=== PATIENT | female | born 1995 | race Caucasian/White ===

== ENCOUNTER 2019-01-22 16:04 | Emergency (ER) | payer OTHER, SELFPAY ==
[2019-01-22 16:20] VITALS: BP 127/92; PULSE 70; RESP 18; TEMP 36.6; O2SAT 100; BMI 19.0
--- NOTE | 2019-01-22 16:24 | HMH.EDUTC ---
[facility] [place]ression: Allergic eye reaction Disposition: Home, Self-Care Condition on Discharge: Good Prescriptions: Prednisolone Acetate/Pf [Prednisolone Acet 1% Eye Drop] 2 drops OP QID 5 Days #1 drops.susp Referrals: Aaron Stallings [Primary Care Provider] - Time of Disposition: 16:34 Medical Decision Making - Camilo Inquiry Pt receiving controlled substance: No Vital Signs: 01/22/19 16:20 Temperature 97.9 F Temperature Source Oral Pulse Rate [Right Radial] 70 Respiratory Rate 18 Blood Pressure [Right Arm] 127/92 H Blood Pressure Mean [Right Arm] 103 Blood Pressure Source [Right Arm] Automatic Cuff Blood Pressure Position [Right Arm] Sitting 02 Sat by Pulse Oximetry 100 Oxygen Delivery Method Room Air [facility] [place] - General Stated complaint: eyes Red Time Seen by Provider: 01/22/19 16:24 Mode of Arrival: Ambulatory Source of Information: Patient Limitations: No Limitations Description of Symptoms (Recalled from Triage Doc. by RN): C/O EYE IRRITATION HEENT Symptoms (Recalled from RN notes): Yes (EYE IRRITATION) Resp Symptoms (Recalled from RN notes): No Skin Symptoms (Recalled from RN notes): No MS Symptoms (Recalled from RN notes): No Functional Status (Recalled from RN notes): N/A - History of Present Illness Provider Complaint: Red,swollen eyes for 2 days after getting eyelash extensions. Eyes feel sore but have not been matted or draining. Onset (ago): day(s) (2) Location: eyes Relieving factors: none Exacerbating factors: none Associated symptoms: denies other symptoms Treatments prior to arrival: none - Related Data Previous Rx's Medication Instructions Recorded Prednisolone Acetate/Pf 2 drops OP QID 5 Days #1 drops.susp 01/22/19 [Prednisolone Acet 1% Eye Drop] - Worker's Comp Is this a Worker's Comp case?: No [facility] History - Hepatitis A Screen Drug use history?: No High risk sexual behaviors?: No History of sexually transmitted infection?: No Currently employed?: No Childcare worker?: No Do you have indoor plumbing?: Yes Do you have electricity?: Yes Attestation statement:: This patient has been screened for Hepatitis A risk factors. I have reviewed the patient's past medical history: Yes - Social History Smoking Status: Never smoker Alcohol Intake: never Occupational Status: employed - Psychiatric History Expresses thoughts of harming self/others: None Suicide Plan Description: No Plan ROS Obtained: Yes All systems reviewed & no additional complaints - Eyes Eyes: Reports eye discharge, Reports eye pain Physical Exam - General General appearance: alert, in no apparent distress - Head Head exam: atraumatic, normocephalic, normal inspection - Eye Eye exam: Present: normal appearance, PERRL, EOMI, scleral icterus - ENT ENT exam: Present: normal exam, normal oropharynx, mucous membranes moist, TM's normal bilaterally, normal external ear exam - Neck Neck exam: Present: normal inspection, full ROM, trachea midline. Absent: meningismus, lymphadenopathy - Chest Chest inspection: Present: normal inspection, symmetric chest wall rise. Absent: tenderness - Respiratory Respiratory exam: Present: normal lung sounds bilaterally. Absent: respiratory distress - Cardiovascular Cardiovascular exam: Present: regular rate, normal rhythm. Absent: JVD - Abdominal Exam Abdominal exam: Present: soft, normal bowel sounds. Absent: distention, tenderness, guarding - Extremities Exam Extremities exam: Present: normal inspection, full ROM, normal capillary refill. Absent: calf tenderness - Back Exam Back exam: Present: normal inspection. Absent: tenderness - Neurological Exam Neurological exam: Present: alert, oriented X3 - Psychiatric Psychiatric exam: Present: normal affect, normal mood - Skin Skin exam: Present: warm, dry, intact, normal color - Lymphatic Lymphatic Findings: no adenopathy
--- NOTE | 2019-01-22 16:31 | ED_ITS ---
[facility] [place] Impression: Allergic eye reaction Disposition: Home, Self-Care Condition on Discharge: Good Prescriptions: Prednisolone Acetate/Pf [Prednisolone Acet 1% Eye Drop] 2 drops OP QID 5 Days #1 drops.susp Referrals: Aaron Stallings [Primary Care Provider] - Time of Disposition: 16:34 Medical Decision Making - Camilo Inquiry Pt receiving controlled substance: No Vital Signs: 01/22/19 16:20 Temperature 97.9 F Temperature Source Oral Pulse Rate [Right Radial] 70 Respiratory Rate 18 Blood Pressure [Right Arm] 127/92 H Blood Pressure Mean [Right Arm] 103 Blood Pressure Source [Right Arm] Automatic Cuff Blood Pressure Position [Right Arm] Sitting 02 Sat by Pulse Oximetry 100 Oxygen Delivery Method Room Air [facility] [place] - General Stated complaint: eyes Red Time Seen by Provider: 01/22/19 16:24 Mode of Arrival: Ambulatory Source of Information: Patient Limitations: No Limitations Description of Symptoms (Recalled from Triage Doc. by RN): C/O EYE IRRITATION HEENT Symptoms (Recalled from RN notes): Yes (EYE IRRITATION) Resp Symptoms (Recalled from RN notes): No Skin Symptoms (Recalled from RN notes): No MS Symptoms (Recalled from RN notes): No Functional Status (Recalled from RN notes): N/A - History of Present Illness Provider Complaint: Red,swollen eyes for 2 days after getting eyelash extensions. Eyes feel sore but have not been matted or draining. Onset (ago): day(s) (2) Location: eyes Relieving factors: none Exacerbating factors: none Associated symptoms: denies other symptoms Treatments prior to arrival: none - Related Data Previous Rx's Medication Instructions Recorded Prednisolone Acetate/Pf 2 drops OP QID 5 Days #1 drops.susp 01/22/19 [Prednisolone Acet 1% Eye Drop] - Worker's Comp Is this a Worker's Comp case?: No [facility] History - Hepatitis A Screen Drug use history?: No High risk sexual behaviors?: No History of sexually transmitted infection?: No Currently employed?: No Childcare worker?: No Do you have indoor plumbing?: Yes Do you have electricity?: Yes Attestation statement:: This patient has been screened for Hepatitis A risk factors. I have reviewed the patient's past medical history: Yes - Social History Smoking Status: Never smoker Alcohol Intake: never Occupational Status: employed - Psychiatric History Expresses thoughts of harming self/others: None Suicide Plan Description: No Plan ROS Obtained: Yes All systems reviewed & no additional complaints - Eyes Eyes: Reports eye discharge, Reports eye pain Physical Exam - General General appearance: alert, in no apparent distress - Head Head exam: atraumatic, normocephalic, normal inspection - Eye Eye exam: Present: normal appearance, PERRL, EOMI, scleral icterus - ENT ENT exam: Present: normal exam, normal oropharynx, mucous membranes moist, TM's normal bilaterally, normal external ear exam - Neck Neck exam: Present: normal inspection, full ROM, trachea midline. Absent: meningismus, lymphadenopathy - Chest Chest inspection: Present: normal inspection, symmetric chest wall rise. Absent: tenderness - Respiratory Respiratory exam: Present: normal lung sounds bilaterally. Absent: respiratory distress
[2019-01-22 16:39] VITALS: BP 127/92; PULSE 70; RESP 18; TEMP 36.6; O2SAT 100
== END 2019-01-22 16:42 | disposition home or self-care (01) ==
PROVIDERS: Emergency Provider Physician Assistant; PCP Internal Medicine
DX: T78.49XA Other allergy, initial encounter (principal); H57.9 Unspecified disorder of eye and adnexa
CPT/HCPCS: 99201

== ENCOUNTER 2023-04-08 17:00 | Emergency (ER) | payer OTHER, SELFPAY ==
[2023-04-08 17:01] VITALS: BP 127/72; PULSE 76; RESP 18; TEMP 36.6; O2SAT 98; BMI 20.9
--- NOTE | 2023-04-08 17:19 | EXP.UTC ---
Discharge Plan Disposition Patient Disposition: Home, Self-Care Condition: Good Prescriptions Prescriptions: New cephalexin 500 mg capsule 500 mg PO BID 5 Days Qty: 10 0RF Referrals Follow up/Referrals: Aaron Stallings MD [Primary Care Provider] - See instructions Activity Restrictions/Add. Instructions Additional Instructions/Restrictions: *Increase fluids. Water not Soda or Tea *Start antibiotic immediately and be sure to take as ordered for the FULL length of time although you should start to see improvement over the next 48 hours *Be SURE to follow up anytime for new or worsening symptoms with your family doctor. AND in 48 hours for urine culture results with your family doctor, if you do not have a doctor then you may call back to the [facility] for urine culture results and further treatment. We do recommend that you choose and establish care with a Primary Care Physician. ?AND follow up with them ?in 10-14 days to repeat UA to ensure infection is resolved and blood no longer present *Be sure to let your PCP know that we sent urine cultures from the [facility] so they can follow up to ensure that you area the on the correct antibiotic Call your doctor office and make appointment for 48 hours (2 days from today) ?to follow up and get the results of your urine culture and further treatment Clinical Impressions Clinical Impression: UTI symptoms Instructions Patient Instructions: DI for Urinary Tract Infection (UTI), Cephalexin Discharge ED Provider: Felipa Frederick [facility] [place] HPI General Stated complaint: low back pain Mode of Arrival: Ambulatory Source of Information: Patient Limitations: No Limitations Time Seen by Provider: 04/08/23 17:19 Description of Symptoms (Recalled from Triage Doc. by RN): Patient reports lower back pain on the left side for 2 days. Possible UTI. HEENT Symptoms (Recalled from RN notes): No Resp Symptoms (Recalled from RN notes): No Skin Symptoms (Recalled from RN notes): No MS Symptoms (Recalled from RN notes): No Functional Status (Recalled from RN notes): wnl History of Present Illness Provider Complaint: Patient states that she has been having achy like feeling on her left lower back since yesterday States that it is an achy like feeling that comes and goes and feeling of urgency and frequency States that she was worried when it was still hurting today that she may have a UTI or something so she came in to get checked Related Data Previous Rx's Medication Instructions Recorded cephalexin 500 mg capsule 500 mg PO BID 5 days #10 caps 04/08/23 Allergies Allergy/AdvReac Type Severity Reaction Status Date / Time No Known Allergies Allergy Verified 04/08/23 17:18 Worker's Comp Is this a Worker's Comp case?: No [facility] Disclaimer: The information contained in this section may have been updated after the patient was seen, as this information can be updated by other users. Social History Smoking Status: Never smoker alcohol intake: never current occupational status: employed Travel in the last 8 weeks: None ROS Obtained: Yes All systems reviewed & no additional complaints except as documented and Yes Systems reviewed as appropriate & no additional complaints except as documented Constitutional Constitutional: Reports system reviewed and no additional complaints, except as documented, Reports as per HPI, Denies body ache, Denies chills and Denies fever(s) ENT Ears, Nose, Mouth, and Throat: Reports system reviewed and no additional complaints, except as documented and Reports as per HPI Cardiovascular Cardiovascular: Reports system reviewed and no additional complaints, except as documented and Reports as per HPI Respiratory Respiratory: Reports system reviewed and no additional complaints, except as documented and Reports as per HPI Gastrointestinal Gastrointestingal: Reports system reviewed and no additional complaints, except as documented and as per HPI; Denies nausea or
[2023-04-08 17:22] LABS: Microscopic, Urine URINE MICROSCOPIC (MICROSCOPIC)
[2023-04-08 17:26] LABS: UTC Pregnancy Test, Urine Negative (Negative)
[2023-04-08 17:52] LABS: Appearance,Urine CLEAR (Clear); Bilirubin,Urine Negative (Negative); Blood, Urine Negative (Negative); Color,Urine YELLOW (Yellow); Glucose,Urine (UA) Negative (Negative); Ketones,Urine Negative (Negative); Leukocyte Esterase,Urine 1+ (Negative); Nitrate,Urine Negative (Negative); PH,Urine 5.5 (5.0-8.5); Protein,Urine Negative (Negative); Specific Gravity, Urine <= 1.005 (1.005-1.030); Urobilinogen,Urine 0.2 EU/dl (0.2)
[2023-04-08 18:19] VITALS: BP 127/72; PULSE 76; RESP 18; TEMP 36.6; O2SAT 98
[2023-04-08 18:47] LABS: Bacteria,Urine Trace /lpf
== END 2023-04-08 18:20 | disposition home or self-care (01) ==
PROVIDERS: Emergency Provider Nurse Practitioner; PCP Internal Medicine
DX: N39.0 Urinary tract infection, site not specified (principal); M54.59 Other low back pain
CPT/HCPCS: 81001; 81025; 87086; 99204; 99212; G0463

== ENCOUNTER 2024-03-30 14:54 | Outpatient (CLI) | payer BC, SELFPAY ==
[2024-03-30 18:38] LABS: Basophils % 0.3 % (0.1-2.0); Eosinophils # 0.1 K/mm3 (0.0-0.4); Eosinophils % 1.3 % (0.1-12.0); Hematocrit 41.9 % (37.0-47.0); Hemoglobin 14.3 g/dL (12.2-16.2); Lymphocytes # 1.8 K/mm3 (0.7-4.5); Lymphocytes % 24.1 % (10-50); Mean Corpuscular HGB Conc 34.1 g/dL (31.8-35.4); Mean Corpuscular Hemoglobin 31.4 pg (27.0-31.2); Mean Corpuscular Volume 92.4 fl (81-99); Mean Platelet Volume 8.3 fl (7.4-10.4); Monocytes # 0.4 K/mm3 (0.1-1.0); Monocytes % 4.7 % (1.7-9.3); Neutrophils # 5.3 K/mm3 (1.8-7.8); Neutrophils % 69.6 % (37.0-80.0); Platelet Count 227 K/mm3 (142-424); Red Blood Count 4.54 M/mm3 (4.20-5.40); Red Cell Distribution Width 13.2 % (11.5-17.5); White Blood Count 7.6 K/mm3 (4.8-10.8)
[2024-03-30 18:52] LABS: Alanine Aminotransferase 17 U/L (12-78); Albumin Level 4.2 g/dl (3.5-5.0); Albumin/Globulin Ratio 1.5 (1.1-1.8); Alkaline Phosphatase 58 U/L (38-126); Aspartate Amino Transferase 22 U/L (14-36); Bilirubin,Total 0.6 mg/dl (0.2-1.3); Blood Urea Nitrogen 10 mg/dl (7-17); Calcium 9.3 mg/dl (8.4-10.2); Carbon Dioxide 25 mmol/L (22.0-30.0); Chloride 105 mmol/L (98-107); Chol/HDL Ratio 3.5 (1-3.5); Cholesterol 170 mg/dl (140-200); Estimated Glomerular Filt Rate 99 ml/min (>60); GFR (African American) 120 ML/MIN (>60); Globulin 2.8 g/dL (1.3-3.2); Glucose 86 mg/dl (74-100); HDL Cholesterol 48 mg/dl (40-60); Sodium 138 mmol/L (136-145); Triglycerides 71 mg/dl (30-150); VLDL Cholesterol 14 mg/dL (0-40)
[2024-03-30 19:04] LABS: Direct LDL Cholesterol 88.91 mg/dL (100-129)
[2024-03-30 19:10] LABS: 25-OH Vitamin D, Total 41.1 ng/mL (30-100)
[2024-03-30 19:23] LABS: Thyroid Stimulating Hormone 2.48 uIU/mL (0.465-4.68)
[2024-03-30 19:55] LABS: Hemoglobin A1C 4.9 % (4.0-6.0)
== END 2024-03-30 23:59 | disposition home or self-care (01) ==
PROVIDERS: PCP Student in an Organized Health Care Education/Training Program; Visit Provider Student in an Organized Health Care Education/Training Program
DX: R39.9 Unspecified symptoms and signs involving the genitourinary system (principal); R10.9 Unspecified abdominal pain; Z13.21 Encounter for screening for nutritional disorder; Z13.1 Encounter for screening for diabetes mellitus; Z13.29 Encounter for screening for other suspected endocrine disorder; Z13.220 Encounter for screening for lipoid disorders
CPT/HCPCS: 80050; 80053; 80061; 82306; 83036; 84443; 85025; 87086

== ENCOUNTER 2024-03-31 19:07 | Emergency (ER) | payer BC, SELFPAY ==
[2024-03-31] VITALS (7 sets, daily range): BP systolic 104–132; BP diastolic 26–87; PULSE 82–100; RESP 16–18; TEMP 36.6–37.2; O2SAT 100; BMI 20.5
--- NOTE | 2024-03-31 19:31 | ED_ITS ---
<Statement entered by Karlo Cook MD - 03/31/24 22:59> I was consulted by the NABILA, and we discussed the complexity of the problems being addressed. I approved the treatment and management plan for this patient's care in the emergency department, thus performing a substantive portion of the medical decision making. Karlo Cook MD, PK, FACEP Discharge Plan Disposition Patient Disposition: Home, Self-Care Condition: Good Prescriptions Prescriptions: New sulfamethoxazole-trimethoprim [Bactrim DS] 800-160 mg tablet 1 tab PO BID 5 Days Qty: 10 0RF Referrals Follow up/Referrals: Provider,Referral, [Primary Care Provider] - See instructions Activity Restrictions/Add. Instructions Additional Instructions/Restrictions: Please call and schedule follow-up with your [employer]. Follow-up with your PCP for any worsening signs or symptoms or return to ER as needed. Clinical Impressions Clinical Impression: UTI (urinary tract infection) Qualifiers: Urinary tract infection type: site unspecified Hematuria presence: with hematuria Qualified Code(s): N39.0 - Urinary tract infection, site not specified Ovarian cyst Qualifiers: Laterality: left Qualified Code(s): N83.202 - Unspecified ovarian cyst, left side Instructions Patient Instructions: DI for Urinary Tract Infection (UTI), DI for Ovarian Cyst Print Language Print Language: Tongan Discharge ED Provider: Karlo Cook General Adult HPI General Chief complaint: Abdominal Pain Stated complaint: abd/back pain Time Seen by Provider: 03/31/24 19:31 History of Present Illness HPI narrative: Patient presents for 3 days of left flank pain and now left upper quadrant pain. Patient reports that she began having left flank pain initially that was unrelenting with no position of comfort described as cramp but not sharp. She has never had a history of kidney stones. She denies vaginal discharge. She denies hematuria. She was seen in the PCP and diagnosed with hematuria but not prescribed antibiotics. She has had no improvement and hence presented for further evaluation. She denies fever chills hemoptysis hematochezia melena vomiting or diarrhea but does report nausea when the pain is bad. Related Data Previous Rx's ?Medication ?Instructions ?Recorded sulfamethoxazole 800 1 tab PO BID 5 days #10 tabs 03/31/24 mg-trimethoprim 160 mg tablet (Bactrim DS) Allergies Allergy/AdvReac Type Severity Reaction Status Date / Time No Known Allergies Allergy Verified 03/30/24 15:14 [facility] Disclaimer: The information contained in this section may have been updated after the patient was seen, as this information can be updated by other users. Medical History No pertinent past medical history Surgical History No significant past surgical history Family History Family/Other No significant family history Social History Smoking Status: Unknown if ever smoked alcohol intake: never current occupational status: employed Travel in the last 8 weeks: None ROS Obtained: Yes Systems reviewed as appropriate & no additional complaints except as documented Physical Exam General General appearance: alert and in no apparent distress Respiratory Respiratory exam: Present normal lung sounds bilaterally Cardiovascular Cardiovascular exam: Present regular rate and normal rhythm Abdominal Exam Abdominal exam: Present soft, tenderness (Mid left abdomen mildly tender to palpation without rebound or guarding or rigidity.) and normal bowel sounds; Absent guarding, rebound or rigidity Back Exam Back exam: Absent CVA tenderness (R) or CVA tenderness (L) Neurological Exam Neurological exam: Present alert and oriented X3 Medical Decision Making Medical Records Medical records reviewed: Yes I reviewed the patient's medical records. Camilo Inquiry Pt receiving controlled substance: No Vital Signs: 03/31/24 19:08 03/31/24 19:20 03/31/24 19:30 Temperature 98.9 F Temperature Source Oral Pulse Rate 99 H 90 Pulse Rate [Left] 100 H Respiratory Rate 18 Blood Pressure 132/74 127/78 Blood Pressure [Right Arm] 132/74 Blood Pressure Mean [Right Arm] 93 02 Sat by Pulse Oximetry 100 100 100 Oxygen Delivery Method Room Air 03/31/24 20:00 03/31/24 21:01 03/31/24 21:30 Temperature Temperature Source Pulse Rate 95 H 97 H 82 Pulse Rate [Left] Respiratory Rate Blood Pressure 121/87 104/71 L 110/26 L Blood Pressure [Right Arm] Blood Pressure Mean [Right Arm] 02 Sat by Pulse Oximetry 100 100 100 Oxygen Delivery Method 03/31/24 21:54 Temperature 97.8 F Temperature Source Pulse Rate 82 Pulse Rate [Left] Respiratory Rate 16 Blood Pressure 110/26 L Blood Pressure [Right Arm] Blood Pressure Mean [Right Arm] 02 Sat by Pulse Oximetry Oxygen Delivery Method Lab Data Lab results reviewed: Yes I reviewed the patient's lab results. Lab Results 03/31/24 19:22: WBC 10.0 D, RBC 4.50, Hgb 14.1, Hct 41.2, MCV 91.6, MCH 31.4 H, MCHC 34.3, RDW 13.3, Plt Count 218, MPV 8.3, Neut % (Auto) 79.9, Lymph % (Auto) 13.7, [place] % (Auto) 4.9, Eos % (Auto) 1.1, Baso % (Auto) 0.4, Neut # (Auto) 8.0 H, Lymph # (Auto) 1.4, [place] # (Auto) 0.5, Eos # (Auto) 0.1, Baso # (Auto) 0.0, Sodium 139, Potassium 3.5, Chloride 108 H, Carbon Dioxide 25, Anion Gap 9.5, BUN 11, Creatinine 0.70, Estimated Creat Clear 115, Estimated GFR 99, Est GFR ( Amer) 120, Glucose 96, Calcium 8.9, Magnesium 1.8, Total Bilirubin 0.8, AST 38 H D, ALT 26 D, Alkaline Phosphatase 59, Total Protein 7.5, Albumin 4.5, Globulin 3.0, Albumin/Globulin Ratio 1.5, Lipase 120, Serum HCG, Qual Negative, Urine Color Yellow, Urine Appearance Cloudy, Urine pH 5.5, Ur Specific [place] 1.010, Urine Protein Negative, Urine Glucose (UA) Negative, Urine Ketones Negative, Urine Blood 2+, Urine Nitrate Negative, Urine Bilirubin Negative, Urine Urobilinogen 0.2, Ur Leukocyte Esterase 2+ A, Urine RBC 5-10, Urine WBC 20-50, Ur Squamous Epith Cells 10-20, Urine Bacteria 1+ 03/31/24 19:22 03/31/24 19:22 Orders (Tests/Meds): ED MEDICATIONS Discontinued Medications Generic Name Dose Route Start Last Admin Trade Name Freq PRN Reason Stop Dose Admin Acetaminophen 1,000 mg 03/31/24 19:46 03/31/24 19:56 Acetaminophen 1,000mg/100ml Vial IV 03/31/24 19:47 1,000 mg ONCE ONE Administration Sodium Chloride 1,000 mls @ 999 mls/hr 03/31/24 19:46 03/31/24 19:57 Sod Chlor 0.9% 1000ml Bag IV 03/31/24 20:46 999 mls/hr .Q1H1M ONE Administration Iopamidol 75 ml 03/31/24 20:33 03/31/24 20:33 Iopamidol-370 (76%);100ml Bottle IV 03/31/24 20:34 75 ml ONCE ONE Administration Ketorolac Tromethamine 30 mg 03/31/24 19:46 03/31/24 19:56 Ketorolac 30mg/Ml Vial IV 03/31/24 19:47 30 mg ONCE ONE Administration Ondansetron HCl 4 mg 03/31/24 19:46 03/31/24 19:56 Ondansetron 4mg/2ml Vial IV 03/31/24 19:47 4 mg ONCE ONE Administration Sodium Chloride 10 ml 03/31/24 20:33 03/31/24 20:33 Sodium Chloride 0.9% 10ml Syr (Rad Only) IV 04/30/24 20:32 10 ml NEEDED PRN Administration Maintain IV Site Trimethoprim/Sulfamethoxazole 1 each 03/31/24 21:35 03/31/24 22:02 Sulfa/Trimethoprim 1 Tablet PO 03/31/24 21:36 1 each ONCE ONE Administration ORDERS Category Date Time Status CT abdomen pelvis w con Stat Cat Scan 03/31/24 19:46 Completed CBC w/Auto Diff [Complete Blood Count Auto Diff] Stat Lab 03/31/24 19:22 Completed CMP [Comprehensive Metabolic Panel] Stat Lab 03/31/24 19:22 Completed HCG Qualitative, Serum Stat Lab 03/31/24 19:22 Completed Lipase Stat Lab 03/31/24 19:22 Completed Magnesium Stat Lab 03/31/24 19:22 Completed UA [Urinalysis and Microscopic] Stat Lab 03/31/24 19:22 Completed Urine Culture Stat Micro 03/31/24 19:22 Received Medical Decision Narrative: In summary patient is a 28-year-old female who presents to the emergency department for evaluation of left-sided abdominal pain. Patient is hemodynamically stable upon arrival, afebrile. Physical exam is tender to left- sided abdominal tenderness without rebound or guarding or rigidity. She has negative CVA tenderness to percussion. Differential diagnosis includes kidney stone versus constipation versus gastroenteritis versus pyelonephritis versus ovarian cyst etc. Initial workup will be conducted with hematologic labs urinalysis CT scan abdomen pelvis with serum . Initial interventions include fluid bolus Toradol Tylenol. Initial workup reviewed by me shows that her hematologic labs are nonactionable urinalysis shows 3+ bacteria and my informal interpretation of her CT scan abdomen pelvis does not show any kidney stones but does show a 4 cm ovarian cyst along with some inflammation free fluid in the pelvis but no free air perforation or obstruction prior to radiology read. Upon repeat evaluation patient had significant reduction in her pain initial intervention. Given this patient is appropriate for discharge with a prescription for Bactrim with first dose given here, close follow-up with her PCP, and follow-up with her [employer] within 48 hours for evaluation of her cyst or sooner if necessary. Critical Care Critical Care Time Critical Care Time: No
--- NOTE | 2024-03-31 19:46 | CT_ITS ---
PROCEDURE INFORMATION: Exam: CT Abdomen And Pelvis With Contrast Exam date and time: 03/31/2024 8:32 PM Age: 28 years old Clinical indication: Abdominal pain; Additional info: Left flank pain, left upper quadrant pain TECHNIQUE: Imaging protocol: Computed tomography of the abdomen and pelvis with contrast. Radiation optimization: All CT scans at this facility use at least one of these dose optimization techniques: automated exposure control; mA and/or kV adjustment per patient size (includes targeted exams where dose is matched to clinical indication); or iterative reconstruction. Contrast material: ISOVUE; Contrast volume: 75 ml; Contrast route: IV; COMPARISON: No relevant prior studies available. FINDINGS: Liver: Mild fatty infiltration of the liver along the falciform ligament. Gallbladder and biliary ducts: Contracted gallbladder. Pancreas: Normal. No ductal dilation. Spleen: Normal. No splenomegaly. Adrenal glands: Normal. No mass. Kidneys and ureters: Normal. No hydronephrosis. Stomach and bowel: Nonspecific bowel wall thickening of portions of small bowel. Distended segments of proximal small bowel could be related to slow motility or peristalsis. Appendix: Unremarkable appendix. Intraperitoneal space: Small amount of free fluid in the pelvis. Vasculature: Unremarkable. No abdominal aortic aneurysm. Lymph nodes: Unremarkable. No enlarged lymph nodes. Urinary bladder: Unremarkable as visualized. Reproductive: There is a 4.3 cm left ovarian cystic structure. Bones/joints: Unremarkable. No acute fracture. Soft tissues: Tiny fat containing umbilical hernia. IMPRESSION: 1. Nonspecific bowel wall thickening of portions of small bowel. Please exclude enteritis. 2. There is a 4.3 cm left ovarian cystic structure. This could be the source of a small amount of free fluid in the pelvis.
[2024-03-31 19:53] LABS: Microscopic, Urine URINE MICROSCOPIC (MICROSCOPIC)
[2024-03-31] MEDS: KETOROLAC 30MG/ML VIAL 30 MG IV (19:56)
[2024-03-31] MEDS: ACETAMINOPHEN 1,000MG/100ML VIAL 1000 MG IV (19:56)
[2024-03-31] MEDS: ONDANSETRON 4MG/2ML VIAL 4 MG IV (19:56)
[2024-03-31] MEDS: 0.9 % SODIUM CHLORIDE 1000ML 1,000 ML 999 ML IV (19:57)
[2024-03-31 20:01] LABS: HCG Qualitative, Serum Negative (Negative)
[2024-03-31 20:02] LABS: Basophils % 0.4 % (0.1-2.0); Eosinophils # 0.1 K/mm3 (0.0-0.4); Eosinophils % 1.1 % (0.1-12.0); Hematocrit 41.2 % (37.0-47.0); Hemoglobin 14.1 g/dL (12.2-16.2); Lymphocytes # 1.4 K/mm3 (0.7-4.5); Lymphocytes % 13.7 % (10-50); Mean Corpuscular HGB Conc 34.3 g/dL (31.8-35.4); Mean Corpuscular Hemoglobin 31.4 pg (27.0-31.2); Mean Corpuscular Volume 91.6 fl (81-99); Mean Platelet Volume 8.3 fl (7.4-10.4); Monocytes # 0.5 K/mm3 (0.1-1.0); Monocytes % 4.9 % (1.7-9.3); Neutrophils % 79.9 % (37.0-80.0); Platelet Count 218 K/mm3 (142-424); Red Cell Distribution Width 13.3 % (11.5-17.5)
[2024-03-31 20:05] LABS: Albumin Level 4.5 g/dl (3.5-5.0); Chloride 108 mmol/L (98-107); Sodium 139 mmol/L (136-145)
[2024-03-31 20:06] LABS: Potassium 3.5 mmoL/L (3.5-5.1)
[2024-03-31 20:08] LABS: Alanine Aminotransferase 26 U/L (12-78); Albumin/Globulin Ratio 1.5 (1.1-1.8); Alkaline Phosphatase 59 U/L (38-126); Anion Gap 9.5 mEq/L (5-15); Aspartate Amino Transferase 38 U/L (14-36); Bilirubin,Total 0.8 mg/dl (0.2-1.3); Blood Urea Nitrogen 11 mg/dl (7-17); Carbon Dioxide 25 mmol/L (22.0-30.0); Creatinine Clearance Estimated 115 mL/min (50-200); Estimated Glomerular Filt Rate 99 ml/min (>60); GFR (African American) 120 ML/MIN (>60); Lipase 120 U/L (23-300); Total Protein,Serum 7.5 g/dl (6.3-8.2)
[2024-03-31 20:09] LABS: Calcium 8.9 mg/dl (8.4-10.2); Glucose 96 mg/dl (74-100); Magnesium 1.8 mg/dl (1.6-2.3)
[2024-03-31 20:14] LABS: Appearance,Urine CLOUDY (Clear); Bilirubin,Urine Negative (Negative); Blood, Urine 2+ (Negative); Color,Urine YELLOW (Yellow); Glucose,Urine (UA) Negative (Negative); Ketones,Urine Negative (Negative); Leukocyte Esterase,Urine 2+ (Negative); Nitrate,Urine Negative (Negative); PH,Urine 5.5 (5.0-8.5); Protein,Urine Negative (Negative); Urobilinogen,Urine 0.2 EU/dl (0.2)
[2024-03-31 20:33] LABS: Bacteria,Urine 1+ /lpf; WBC,Urine 20-50 #/hpf (0-3)
[2024-03-31] MEDS: IOPAMIDOL-370 (76%);100ML BOTTLE 75 ML IV (20:33)
[2024-03-31] MEDS: SODIUM CHLORIDE 0.9% 10ML SYR (RAD ONLY) 10 ML IV (20:33)
[2024-03-31] MEDS: SULFA/TRIMETHOPRIM 1 TABLET 1 EACH PO (22:02)
== END 2024-03-31 22:03 | disposition home or self-care (01) ==
PROVIDERS: Physician Assistant; Emergency Provider Student in an Organized Health Care Education/Training Program
DX: R10.12 Left upper quadrant pain (principal); R10.32 Left lower quadrant pain; N39.0 Urinary tract infection, site not specified; R31.9 Hematuria, unspecified; B96.29 Other Escherichia coli [E. coli] as the cause of diseases classified elsewhere
CPT/HCPCS: 74177; 80053; 81001; 83690; 83735; 84703; 85025; 87086; 96361; 96374; 96375; 99285; J0131; J1885; J2405; Q9967